=== PATIENT | female | born 1975 | race Asian ===

== ENCOUNTER 2021-01-27 19:18 | Emergency (ER) | payer MEDICAID ==
[~2021-01-27] VITALS: Ht 154.9 cm; Wt 66.0 kg
== END 2021-01-27 23:58 | disposition left against medical advice (07) ==
LOC: ER 19:19
DX: Z13.1 Encounter for screening for diabetes mellitus (principal); Z53.21 Procedure and treatment not carried out due to patient leaving prior to being seen by health care provider

== ENCOUNTER 2023-08-10 12:11 | Inpatient (IN) | payer MEDICAID ==
[~2023-08-10] VITALS: Ht 154.9 cm; Wt 66.5 kg
[2023-08-10 13:59] LABS: BASOPHILS # (AUTO) 0.1 X10'3 (0-0.2); BASOPHILS % (AUTO) 0.4 % (0-1); EOSINOPHILS % (AUTO) 0.1 % (0-6); HEMATOCRIT 44.7 % (35.0-45.0); HEMOGLOBIN 14.5 g/dl (12.0-16.0); LYMPHOCYTES # (AUTO) 1.7 X10'3 (1.1-4.8); LYMPHOCYTES % (AUTO) 10.3 % (21-51); MEAN CORPUSCULAR HGB CONC 32.5 g/dL (33.0-36.5); MEAN CORPUSCULAR VOLUME 83.1 FL (78-98); MEAN PLATELET VOLUME 8.3 FL (7.4-10.4); MONOCYTES # (AUTO) 0.9 X10'3 (0-0.9); MONOCYTES % (AUTO) 5.3 % (2-12); NEUTROPHILS # (AUTO) 13.5 X10'3 (1.8-7.7); NEUTROPHILS % (AUTO) 83.9 % (42-75); PLATELET COUNT 489 X10'3 (140-440); RED BLOOD COUNT 5.38 X10'6 (4.20-5.60); RED CELL DISTRIBUTION WIDTH 14.6 % (11.5-14.5); WHITE BLOOD COUNT 16.1 X10'3 (4.5-11.0)
[2023-08-10 14:03] LABS: ALANINE AMINOTRANSFERASE 27 U/L (12-78); ALBUMIN/GLOBULIN RATIO 0.9 (1.1-1.5); ALKALINE PHOSPHATASE 66 IU/L (46-116); ANION GAP 22 (8-16); ASPARTATE AMINO TRANSFERASE 18 U/L (10-37); BILIRUBIN,TOTAL 1.1 MG/DL (0.1-1.0); BLOOD UREA NITROGEN 9 MG/DL (7-18); BUN/CREATININE RATIO 12.7 (10.0-20.0); CALCIUM 9.6 MG/DL (8.5-10.1); CHLORIDE 99 MMOL/L (99-107); CREATININE 0.71 MG/DL (0.40-0.90); GLUCOSE 174 MG/DL (70-104); POTASSIUM 3.3 MMOL/L (3.5-5.1); SODIUM 139 MMOL/L (135-145); TOTAL CARBON DIOXIDE 18.2 MMOL/L (24-32); TOTAL PROTEIN 8.5 G/DL (6.4-8.2); eCRCL 83 ML/MIN; eGFR 87 ML/MIN
[2023-08-10 14:07] LABS: LIPASE 24 U/L (16-77)
[2023-08-10 14:09] LABS: ACETONE SMALL (NEGATIVE)
[2023-08-10] MEDS: ondansetron/PF 4mg/2ml inj IV ONE (16:45)
[2023-08-10] MEDS: normal saline 1000ml 1,000 ML IV ONE (17:18)
[2023-08-10 17:22] LABS: BILIRUBIN,URINE SMALL (Neg); CLARITY,URINE SLIGHTLY CLOUDY (Clear); COLOR,URINE YELLOW (Yellow); GLUCOSE, URINE 500 mg/dl (Neg); KETONES,URINE >=80 mg/dl (Neg); LEUKOCYTE ESTERASE ,URINE NEGATIVE (Neg); NITRITES, URINE NEGATIVE (Neg); OCCULT BLOOD,URINE NEGATIVE (Neg); PROTEIN,URINE NEGATIVE (Neg); URINE HCG NEGATIVE (NEG); UROBILINOGEN,URINE 0.2 E.U/dL (0.2-1.0)
[2023-08-10 17:29] LABS: UA COLLECTION TYPE CLN CATCH MIDSTREAM
[2023-08-10 17:35] LABS: BACTERIA,URINE NONE SEEN /HPF (Neg); RBC,URINE 0-2 /HPF (0-2); SQUAMOUS EPITHELIAL CELL,UR MANY /LPF (FEW); WBC,URINE 0-4 /HPF (0-4)
[2023-08-10 18:01] LABS: URINE AMPHETAMINE SCREEN POSITIVE (Neg); URINE BARBITUATE SCREEN NEGATIVE (Neg); URINE BENZODIAZEPINES SCREEN NEGATIVE (Neg); URINE CANNABINOID SCREEN NEGATIVE (Neg); URINE COCAINE SCREEN NEGATIVE (Neg); URINE METHADONE SCREEN NEGATIVE (Neg); URINE OPIATE SCREEN NEGATIVE (Neg); URINE PHENCYCLIDINE SCREEN NEGATIVE (Neg)
[2023-08-10 19:14] LABS: ETHANOL < 10 MG/DL (<10)
[2023-08-10 19:31] LABS: MAGNESIUM 1.9 MG/DL (1.5-2.4)
[2023-08-10] MEDS: metoclopramide 5 mg/ml inj IV ONE (19:50)
[2023-08-10] MEDS: thiamine 100mg/ml 2ml inj. IV ONE (19:50)
[2023-08-10] MEDS ORDERED: magnesium 4gm in 100ml NS 100 ML IV PRN (20:10)
[2023-08-10] MEDS ORDERED: mag hydrox/Alum hydrox/simeth 30ml oral suspension PO PRN (20:10)
[2023-08-10] MEDS ORDERED: HYDROcodone/acetaminophen 10/325mg tab PO PRN (20:10)
[2023-08-10] MEDS ORDERED: magnesium 2GM in 50ml NS 50 ML IV PRN (20:10)
[2023-08-10] MEDS ORDERED: potassium Cl 20 mEq SR tablet PO PRN ×2 (20:10)
[2023-08-10] MEDS ORDERED: morphine 2 MG/ML inj. syringe IV PRN ×2 (20:10)
[2023-08-10] MEDS ORDERED: magnesium hydroxide 30ml (MOM) UD suspension PO PRN (20:10)
[2023-08-10] MEDS ORDERED: potassium Cl 40MEQ/1/2NS 520ml 520 ML IV PRN (20:10)
[2023-08-10] MEDS ORDERED: acetaminophen 325mg tablet PO PRN ×2 (20:10)
[2023-08-10] MEDS ORDERED: magnesium Cl slow-release 64mg tablet PO PRN (20:10)
[2023-08-10] MEDS: ringers solution, lacted 1,000 ML IV SCH (20:31)
[2023-08-10] MEDS ORDERED: dextrose 50%-water 50ml dispensing syringe IV PRN ×2 (20:35)
[2023-08-10] MEDS ORDERED: DEXTROSE 15 GM of carb/4 tabs (each vial/BOTTLE has 4 tablets) PO PRN ×2 (20:35)
[2023-08-10] MEDS ORDERED: glucagon, human recombinant 1mg kit SUBCUT PRN (20:35)
[2023-08-10] MEDS ORDERED: haloperidol 5mg tablet PO PRN (20:35)
[2023-08-10] MEDS ORDERED: haloperidol lactate 5mg/ml inj IM PRN (20:35)
[2023-08-10 20:59] LABS: HEMOGLOBIN A1C 8.1 % (4.5-6.2)
[2023-08-10] MEDS: thiamine 100mg/ml 2ml inj. IV SCH (21:00)
[2023-08-10] MEDS ORDERED: insulin glargine (Lantus) pen - multi-dose SQ SCH (21:00)
[2023-08-10 21:47] LABS: ALBUMIN 3.4 G/DL (3.4-5.0); ANION GAP 21 (8-16); BLOOD UREA NITROGEN 8 MG/DL (7-18); BUN/CREATININE RATIO 12.1 (10.0-20.0); CALCIUM 8.4 MG/DL (8.5-10.1); CHLORIDE 104 MMOL/L (99-107); CREATININE 0.66 MG/DL (0.40-0.90); GLUCOSE 121 MG/DL (70-104); POTASSIUM 3.6 MMOL/L (3.5-5.1); SODIUM 141 MMOL/L (135-145); TOTAL CARBON DIOXIDE 15.9 MMOL/L (24-32); eCRCL 89 ML/MIN; eGFR > 90 ML/MIN
[2023-08-10 22:00] VITALS: BP 144/91; PULSE 74; RESP 16; TEMP 96.8; O2SAT 100
[2023-08-10] MEDS: LORazepam 2 mg/ml vial IV ONE (22:34)
[2023-08-10] MEDS ORDERED: FENO120T5 PO (23:05)
[2023-08-10] MEDS ORDERED: EMPA25TA PO (23:05)
[2023-08-10] MEDS ORDERED: SITA100T11 PO (23:05)
[2023-08-10] MEDS ORDERED: METF-517 PO (23:05)
[2023-08-10] MEDS ORDERED: ERGO500041 PO (23:05)
[2023-08-10] MEDS ORDERED: SERT25TA PO (23:05)
[2023-08-11 06:00] VITALS: BP 100/62; PULSE 79; RESP 16; TEMP 98.4; O2SAT 94
[2023-08-11] MEDS: insulin Lispro (HumaLOG) vial - multi-dose SQ SCH (07:00)
[2023-08-11 07:20] LABS: BASOPHILS # (AUTO) 0.2 X10'3 (0-0.2); EOSINOPHILS % (AUTO) 0.4 % (0-6); HEMOGLOBIN 12.5 g/dl (12.0-16.0); LYMPHOCYTES # (AUTO) 2.1 X10'3 (1.1-4.8); LYMPHOCYTES % (AUTO) 18.6 % (21-51); MEAN CORPUSCULAR HEMOGLOBIN 27.5 PG (27.0-31.0); MEAN CORPUSCULAR HGB CONC 32.9 g/dL (33.0-36.5); MEAN CORPUSCULAR VOLUME 83.5 FL (78-98); MEAN PLATELET VOLUME 8.2 FL (7.4-10.4); MONOCYTES # (AUTO) 0.5 X10'3 (0-0.9); MONOCYTES % (AUTO) 4.8 % (2-12); NEUTROPHILS # (AUTO) 8.4 X10'3 (1.8-7.7); NEUTROPHILS % (AUTO) 74.2 % (42-75); PLATELET COUNT 389 X10'3 (140-440); RED BLOOD COUNT 4.55 X10'6 (4.20-5.60); RED CELL DISTRIBUTION WIDTH 14.4 % (11.5-14.5); WHITE BLOOD COUNT 11.3 X10'3 (4.5-11.0)
[2023-08-11 07:31] LABS: APTT 28 SECONDS (22-32); PROTHROMBIN TIME 10.6 SECONDS (9.0-12.0)
[2023-08-11] MEDS: ondansetron/PF 4mg/2ml inj IV PRN (07:43)
[2023-08-11 07:44] LABS: ALANINE AMINOTRANSFERASE 16 U/L (12-78); ALBUMIN 2.9 G/DL (3.4-5.0); ALBUMIN/GLOBULIN RATIO 0.8 (1.1-1.5); ALKALINE PHOSPHATASE 47 IU/L (46-116); AMYLASE 124 U/L (25-115); ANION GAP 11 (8-16); ASPARTATE AMINO TRANSFERASE 25 U/L (10-37); BILIRUBIN,TOTAL 0.8 MG/DL (0.1-1.0); BLOOD UREA NITROGEN 8 MG/DL (7-18); BUN/CREATININE RATIO 13.3 (10.0-20.0); CALCIUM 8.3 MG/DL (8.5-10.1); CHLORIDE 106 MMOL/L (99-107); CHOL/HDL RATIO 2.7 (0.00-4.99); CHOLESTEROL 157 MG/DL (0-200); FREE T4 (FREE THYROXINE) 1.56 NG/DL (0.73-1.40); GLUCOSE 107 MG/DL (70-104); HDL CHOLESTEROL 58 MG/DL (35-60); LDL CHOLESTEROL 83 MG/DL (50-100); LIPASE 20 U/L (16-77); MAGNESIUM 1.9 MG/DL (1.5-2.4); PHOSPHORUS 3.7 MG/DL (2.3-4.5); POTASSIUM 3.6 MMOL/L (3.5-5.1); SODIUM 137 MMOL/L (135-145); THYROID STIMULATING HORMONE 1.39 ulU/ml (0.34-4.50); TOTAL CARBON DIOXIDE 20.5 MMOL/L (24-32); TOTAL PROTEIN 6.4 G/DL (6.4-8.2); TRIGLYCERIDES 85 MG/DL (20-135); eCRCL 86 ML/MIN; eGFR > 90 ML/MIN
[2023-08-11] MEDS: heparin, porcine 5000 units/ml vial SQ SCH (07:44)
[2023-08-11] MEDS: multivitamins, therapeutics tablet PO SCH (07:44)
[2023-08-11] MEDS: docusate sod 100mg capsule PO SCH (07:44)
[2023-08-11] MEDS: folic acid 1mg/0.2ml inj IV SCH (07:45)
[2023-08-11] MEDS: K and/or MAG REPLACEMENT MC SCH (08:00)
[2023-08-11 09:09] VITALS: RESP 18; O2SAT 94
[2023-08-11 10:00] VITALS: BP 131/83; PULSE 70; RESP 16; TEMP 97.8; O2SAT 99
[2023-08-11 18:00] VITALS: BP 99/66; PULSE 76; RESP 18; TEMP 98; O2SAT 99
[2023-08-11 20:00] VITALS: RESP 18; O2SAT 94
[2023-08-11] MEDS: insulin glargine (Lantus) pen - multi-dose SQ SCH (21:40)
[2023-08-11 22:00] VITALS: BP 110/72; PULSE 69; RESP 16; TEMP 98.5; O2SAT 99
[2023-08-11] MEDS: benzonatate 100mg capsule PO PRN (23:12)
[2023-08-12 06:52] VITALS: BP 138/84; PULSE 86; RESP 15; TEMP 97.5; O2SAT 99
[2023-08-12 07:37] LABS: BASOPHILS # (AUTO) 0.1 X10'3 (0-0.2); BASOPHILS % (AUTO) 0.9 % (0-1); EOSINOPHILS # (AUTO) 0.1 X10'3 (0-0.9); EOSINOPHILS % (AUTO) 1.4 % (0-6); HEMATOCRIT 40.5 % (35.0-45.0); HEMOGLOBIN 13.2 g/dl (12.0-16.0); LYMPHOCYTES # (AUTO) 2.1 X10'3 (1.1-4.8); LYMPHOCYTES % (AUTO) 24.4 % (21-51); MEAN CORPUSCULAR HEMOGLOBIN 27.3 PG (27.0-31.0); MEAN CORPUSCULAR HGB CONC 32.5 g/dL (33.0-36.5); MEAN CORPUSCULAR VOLUME 83.9 FL (78-98); MEAN PLATELET VOLUME 8.1 FL (7.4-10.4); MONOCYTES # (AUTO) 0.6 X10'3 (0-0.9); MONOCYTES % (AUTO) 7.6 % (2-12); NEUTROPHILS # (AUTO) 5.6 X10'3 (1.8-7.7); NEUTROPHILS % (AUTO) 65.7 % (42-75); PLATELET COUNT 396 X10'3 (140-440); RED BLOOD COUNT 4.83 X10'6 (4.20-5.60); RED CELL DISTRIBUTION WIDTH 14.6 % (11.5-14.5); WHITE BLOOD COUNT 8.5 X10'3 (4.5-11.0)
[2023-08-12 07:41] LABS: APTT 28 SECONDS (22-32); INR 0.9 INR; PROTHROMBIN TIME 10.2 SECONDS (9.0-12.0)
[2023-08-12] MEDS: LORazepam 2 mg/ml vial IV PRN (07:44)
[2023-08-12] MEDS: sertraline 50mg tablet PO SCH (07:45)
[2023-08-12 07:50] LABS: ALANINE AMINOTRANSFERASE 16 U/L (12-78); ALBUMIN 2.9 G/DL (3.4-5.0); ALBUMIN/GLOBULIN RATIO 0.8 (1.1-1.5); ALKALINE PHOSPHATASE 47 IU/L (46-116); AMYLASE 126 U/L (25-115); ANION GAP 7 (8-16); ASPARTATE AMINO TRANSFERASE 9 U/L (10-37); BILIRUBIN,TOTAL 0.4 MG/DL (0.1-1.0); BLOOD UREA NITROGEN 9 MG/DL (7-18); BUN/CREATININE RATIO 13.4 (10.0-20.0); CALCIUM 8.5 MG/DL (8.5-10.1); CHLORIDE 106 MMOL/L (99-107); CREATININE 0.67 MG/DL (0.40-0.90); GLUCOSE 172 MG/DL (70-104); LIPASE 32 U/L (16-77); PHOSPHORUS 3.9 MG/DL (2.3-4.5); POTASSIUM 3.7 MMOL/L (3.5-5.1); SODIUM 139 MMOL/L (135-145); TOTAL CARBON DIOXIDE 26.2 MMOL/L (24-32); TOTAL PROTEIN 6.6 G/DL (6.4-8.2); eCRCL 77 ML/MIN; eGFR > 90 ML/MIN
[2023-08-12] MEDS: HYDROcodone/acetaminophen 5mg/325mg tablet PO PRN (07:58)
[2023-08-12] MEDS ORDERED: METFORMIN HCL PO SCH (08:00)
[2023-08-12] MEDS ORDERED: EMPAGLIFLOZIN 25 MG TABLET PO SCH (08:00)
[2023-08-12 08:15] VITALS: RESP 15; O2SAT 99
[2023-08-12 10:00] VITALS: BP 91/54; PULSE 61; RESP 14; TEMP 97; O2SAT 100
[2023-08-12] MEDS ORDERED: LORazepam 2 mg/ml vial IV PRN (20:35)
[2023-08-12] MEDS ORDERED: LORazepam 1 MG tablet PO PRN (20:35)
[2023-08-14] MEDS ORDERED: thiamine 100mg tablet PO SCH (08:00)
[2023-08-14] MEDS ORDERED: LORazepam 2 mg/ml vial IV PRN (20:35)
[2023-08-14] MEDS ORDERED: LORazepam 1 MG tablet PO PRN (20:35)
[2023-08-15] MEDS ORDERED: folic acid 1mg tablet PO SCH (08:00)
== END 2023-08-12 15:05 | disposition home or self-care (01) | DRG 425 ==
LOC: ER 12:11 → ED HOLD 20:19 → UNDOADMIN 20:19 → ORTHO 4S 21:30 → ED HOLD 21:30 → ORTHO 4S 08-11 04:44
PROVIDERS: ADMIT Surgery Surgical Critical Care; ATTEND Internal Medicine
DX: E87.6 Hypokalemia (principal); E87.29 Other acidosis; F15.10 Other stimulant abuse, uncomplicated; E11.9 Type 2 diabetes mellitus without complications; F10.10 Alcohol abuse, uncomplicated; Z79.84 Long term (current) use of oral hypoglycemic drugs
CPT/HCPCS: 36415; 71045; 74176; 76856; 80048; 80053; 80061; 80305; 80320; 81001; 81025; 82009; 82150; 82948; 83036; 83605; 83690; 83735; 84100; 84439; 84443; 84484; 85025; 85610; 85730; 87081; 93005; 93976; 96374; 96375; 99285; A4615; G0378; J1644; J1815; J2060; J2405; J2765; J3411; J3490; J7030; J7120